=== PATIENT | male | born 1960 | race Caucasian/White ===

== ENCOUNTER 2017-03-05 08:06 | Day surgery (SDC) | payer BC ==
[~2017-03-05] VITALS: Ht 180.3 cm; Wt 99.8 kg
[~2017-03-05 08:06] MED LIST: LIDOCAINE 1% (10mg/ml) 2ml SDV INJ ONE; LR 1,000 ML IV SCH
--- OUTSIDE RECORDS SUMMARY | 2017-03-05 08:10 | XMS REPORT | Referral Summary ---
Author Author [facility], [facility] Organization [facility] Address Unknown Phone Unavailable Care Team Providers [employer] Journalist Name Role Phone No PCP, States Primary Care Physician [phone] Encounter VC Date(s): 09/30/16 - 09/30/16 [facility] [place], [address] [place] [address] Discharge Diagnosis: Acute frontal sinusitis Discharge Diagnosis: Conjunctivitis, right eye Discharge Disposition: 01-Home or Self Care Attending Physician: Edwin Quiroz MD Admitting Physician: Edwin Quiroz MD Vital Signs Most recent to 1 oldest [Reference Range]: Temperature Tympanic 36.9 degC [36.6-38.1 degC] (09/30/16 8:52 AM) Peripheral Pulse 85 bpm Rate [60-100 bpm] (09/30/16 8:52 AM) Blood Pressure 118/78 mmHg [90-140/60-90 mmHg] (09/30/16 8:52 AM) SpO2 97 % (09/30/16 8:52 AM) Problem List Condition Effective Dates Status Health Status Informant Anemia, Active unspecified(Confirme d) Cardiac dysrhythmia, Active unspecified(Confirme d) Osteoarthrosis, Active unspecified site(Confirmed) Obesity(Confirmed) Active patient Varicella w/o Active complication(Confirm ed) Allergies, Adverse Reactions, Alerts No Known Medication Allergies Medications Bactrim DS 800 mg-160 mg oral tablet 1 tabs, Oral, BID, X 10 days, # 20 tabs, 0 Refill(s), [id number] Start Date: 09/30/16 Stop Date: 10/10/16 Status: Ordered Chantix Oral, BID, 0 Refill(s) Start Date: 09/30/16 Status: Ordered sulfacetamide sodium 10% ophthalmic solution 1 drops, Eye-Both, QID, X 10 days, # 15 mL, 0 Refill(s), Pharmacy: [facility] #[id number] Start Date: 09/30/16 Stop Date: 10/10/16 Status: Ordered Results No data available for this section Immunizations No data available for this section Procedures Procedure Date Related Diagnosis Body Site Colonoscopy1 12/14/11 Colonoscopy2 11/30/06 Circumcision Left Knee Surgery 1Hyperplastic polyp x1, Fam HX colon cancer, Repeat 5 yrs 2Hyperplastic Polyps x2, Fam HX Colon Cancer, Repeat 5 Yrs Social History Social History Type Response Smoking Status Current some day smoker; Type: Cigarettes Assessment and Plan Extracted from: Title: Office Visit Note Author: Edwin Quiroz MD Date: 09/30/16 Assessment/Plan 1.Acute frontal sinusitis 2.Conjunctivitis, right eye It's unclear whether this is viral or bacterial, but since it is quite localized and has been getting a bit worse, we'll cover with antibiotic treatment. Option given for sulfa medication and also sulfacetamide drops for the eyes. Discussed expected course and contagiousness. Follow-up when necessary.
--- OUTSIDE RECORDS SUMMARY | 2017-03-05 08:10 | XMS REPORT | Continuity of Care Document ---
Author Author [facility] Organization [facility] Address Unknown Phone Unavailable Allergies Active Description Code Type Severity Reaction Onset Reported/Identified Relationship to Patient Clinical Status Yes No Known Medication Allergies NKMA N/A N/A 10/30/2014 Medications Problems Procedures Results Encounters ACCT No. Visit Date/Time Discharge Status Pt. Type Provider Facility Loc./Unit Complaint [id number] 09/30/2016 08:48:00 2015 23:59:00 DIS Outpatient Edwin Quiroz V [facility] New IC LT EYE RED AND SINUS ISSUES [id number] 12/02/2014 13:38:00 2014 23:59:00 DIS Outpatient Quintin Zambrano [facility] New Surg blood in stools [id number] 11/30/2014 08:50:00 2014 23:59:00 DIS Outpatient Chichi Huynh F [facility] New FM 1 mo recheck - abdominal pain [id number] 11/02/2014 09:11:00 2014 23:59:00 DIS Outpatient Chichi Huynh F [facility] New FM WELL MALE EXAM [id number] 03/26/2015 08:53:00 Document Registration
--- OUTSIDE RECORDS SUMMARY | 2017-03-05 08:11 | XMS REPORT | Continuity of Care Document ---
Author Author [facility] Organization [facility] Address Unknown Phone Unavailable Support Name Relationship Address Phone LUCINA IYER DO Caregiver [address] [place] [address] Unavailable FUAD QUINTEROS DPM Caregiver [address] [place] [address] Unavailable DEBORAH TEJADA Next Of Kin [address] [place], [place] [id number] Insurance Providers Guarantor Gustavo Tejada Address [address] [place], [place] [id number] Email DENIED/NO TO [facility] Policy Number [id number] Subscriber's Name WoodridgeDeborah Sullivan Relationship 01 Spouse Group Number [id number] Advance Directives Directive Response Recorded Date/Time Resuscitation Documents on File No 10/13/16 8:05am DPOA for Healthcare Only Yes 10/13/16 8:05am Living Will Yes 10/13/16 8:05am Problems No problem information available. Medications Current Home Medications Medication Dose Units Route Directions Days Qty Instructions Start Date Varenicline Tartrate (Chantix) 1 Each Tab.ds.pk 1 Tab Oral Twice A Day 53 10/12/16 Social History Social History Problem Response Recorded Date/Time Onset Date Status Reason for Hospitalization LEFT BUNIONECTOMY AND SECOND HAMMERTOE REPAIR 9:49am Not Applicable Not Applicable Chewing Tobacco Status No 04/25/2013 11:53am Not Applicable Not Applicable Hx Substance Use No 2016 10:06am Not Applicable Not Applicable Hx Alcohol Use Y DAILY 2016 10:06am Not Applicable Not Applicable Has the pt used tobacco in the last 12 months No 2016 10:06am Not Applicable Not Applicable Query Response Start Date Stop Date Smoking Status Current every day smoker Hospital Discharge Instructions Instructions: Care Instructions: I was in the hospital because (patient own words): "relieve my pain on my left foot" Discharge Diet: Regular Discharge Activity: Non-Weight Bearing See Surgery Packet Follow Up Appointments: 10/24/16 @ 0830 Pending Lab / Results: No Pending Lab Expected Signs/Symptoms: Numbness for 2 hours Notify Physician If: Excessive pain Bleeding through dressing During Business Hours:: Please call the physician's office at [phone] After Business Hours:: Please call Dr. Quinteros at [phone] Pain Management/Treatment: Pain medicine as directed Wound/Incision Care: Do not touch dressing or get it wet. Durable Medical Equipment: See Surgery packet Condition at time of discharge: Good Plan of Care Discharge Date 10/13/16 10:32am Instructions/Education Provided [facility] RENEA Quinteros Discharge Instructions Prescriptions See Medication Section Functional Status Query Response Date Recorded Ability to complete ADL's impeded by No change October 13, 2016 8:05am Allergies, Adverse Reactions, Alerts Allergen Type Severity Reaction Status Last Updated NKDA Allergy Unknown Active 10/13/16 Immunizations Query Response on File Recorded Date/Time Hx Influenza Vaccination No 10/12/16 10:06am Hx Pneumococcal Vaccination No 10/12/16 10:06am Hx Influenza Vaccination No 10/12/16 10:06am Vital Signs Acute Vital Signs Vital Response Date/Time Temperature (Fahrenheit) 97.8 deg F (96.8 - 99.1) 10/13/2016 10:06am Temperature (Calculated Celsius) 36.55788 degrees C (36.0 - 37.3) 10/13/2016 10:06am Temperature Source Temporal 10/13/2016 10:06am Pulse Rate (adult) 67 bpm (60 - 100) 10/13/2016 10:06am Respiratory Rate 19 breaths/min (10 - 20) 10/13/2016 10:06am O2 Sat by Pulse Oximetry 98 % (90 - 100) 10/13/2016 10:06am Oxygen Delivery Method Room Air 10/13/2016 10:06am Oxygen Flow Rate 6.00 L/min 10/13/2016 9:42am Blood Pressure 103/65 mm Hg 10/13/2016 10:06am Blood Pressure Source Automatic Cuff 10/13/2016 10:06am Height (Feet) 6 feet 10/13/2016 7:58am Height (Inches) 0.00 inches 10/13/2016 7:58am Weight (Kilograms) 95.200 kg 10/13/2016 7:58am Body Mass Index (BMI) 28.5 10/13/2016 7:58am Results Name: GUSTAVO TEJADA Unit #: [id number] : 1960 Sex: M Admit Date: Loc / Svc: NSC Discharge Date: DIAGNOSTIC IMAGING REPORT Report #: [id number] [facility] BLANCHE Siddiqi Indication: ITS.REASON: POST SURGERY Procedure: FOOT LEFT 2 VIEWS: Encounter: Initial Comparison: None Technique: AP and lateral views of the left foot were obtained Findings: Bony mineralization is normal. Postoperative changes of the distal first metatarsal and first proximal phalanx with metallic hardware in place. Osteotomy of the distal aspect of the second proximal phalanx. The visualized osseous structures appear otherwise intact with no acute fracture identified. The joint spaces are maintained. No focal radiographically apparent soft tissue swelling. No radiopaque foreign body. Impression: 1. Postsurgical changes of the distal first metatarsal and first proximal phalanx with metallic hardware in place which appears intact. 2. Osteotomy of the distal aspect of the second proximal phalanx. . Procedures Procedure Status Date Provider(s) Bunionectomy Completed 10/13/16 FUAD QUINTEROS DPM Encounters Encounter Location Arrival/Admit Date Discharge/Depart Date Attending Provider Departed [facility] Day [facility] 10/13/16 7:38am 10/13/16 10 :32am FUAD QUINTEROS DPM
[2017-03-05 08:45] VITALS: Ht 180.3 cm; Wt 99.8 kg
[2017-03-05 08:46] VITALS: BP 145/83; PULSE 43; RESP 14; TEMP 97.8; O2SAT 98
[2017-03-05 08:57] VITALS: PULSE 47
--- NOTE | 2017-03-05 09:05 | ANESPREOP ---
Anesthesia Record Date and Time DATE: 03/05/17 TIME: 09:04 Pre-Op Diagnosis [place] Proposed Surgical Procedure colonoscopy NPO since: Midnight Allergies: Coded Allergies: NKDA (Verified Allergy, Unknown, 03/05/17) Ht/Wt/BMI Height: 5 ' 11.00 " Weight: 99.800 kg BMI: 30.7 kg/m2 Vital Signs Date Time Temp Pulse Resp B/P Pulse Ox O2 Delivery O2 Flow Rate FiO2 03/05/17 08:57 47 03/05/17 08:46 97.8 14 145/83 98 Room Air Medications Inpatient Medications Current Medications Medications (Trade) Dose Ordered Sig/Haile Start Time Stop Time Status Last Admin Dose Admin Lactated Ringer's (Lactated Ringers) 1,000 ml @ 30 mls/hr Q24H 03/05/17 07:00 No Active Prescriptions or Reported Meds Currently on Beta Rebecca: No Medical/Surgical History Anesthesia PMH: Reports: Anesthesia Reactions (has "been known to be resistive " AFTER COLONOSCOPY), Arthritis (KNEES), Reflux, Denies: *Angina, *Diabetes, * Dyspnea, *Hypertension, *HI, Asthma, Blood Transfusion Reac, CHF, COPD, CVA/ Stroke/TIA, Cancer, Clotting Problems, Deep Vein Thrombosis, Glaucoma, Headaches , Hepatitis, Hiatal Hernia, Malignant Hyperthermia, Pneumonia, Renal Disease, Rheumatic Fever, Seizures, Sleep Apnea, Thyroid Disease, Tuberculosis Smoking Status: Former smoker (quit 7 years ago) # of Packs per Day: .5 # of Years: 30 Use Chewing Tobacco?: No Second Hand Exposure: No Substance Use Type: does not use Alcohol Intake: rarely Past Surgical History Orthopedic Surgeries: Yes - ALEX. KNEE SCOPE Abdominal Surgeries: No Genitourinary Surgeries: Yes - urethra ballooning Cardiac Surgeries: No Endocrine Surgeries: No Reproductive Surgeries: Yes - CIRCUMCISION PER H&P Neurological Surgeries: No Ear Surgeries: No Nose Surgeries: No Throat Surgeries: Yes - tonsils Other Surgeries: No - COLONOSCOPY X 2 Anesthesia Adverse Reactions: FOUND none Pertinent Findings EKG Rhythm: Sinus Bradycardia Physical Exam Respiratory: Lungs clear Cardiovascular: FOUND Regular rate, rhythm Airway Assessment Mallampati Score: II TMD: 3 Fingerbreadths Neck Extension: Good Overall Assessment: No Airway Concerns ASA: 2 Plan Anesthesia Plan: TIVA Discussion Discussed risks/options/alternatives of anesthesia and questions answered. Patient consents. Nursing pain assessment noted. Attestation Statement Prior to the delivery of any anesthetic medication, I examined the patient, developed the plan, obtained the patient's consent and discussed the risk and benefits of the procedure with the patient/guardian. NABIL ZIMMERMAN ROOM SERVICE SERVER March 05, 2017 09:05
[2017-03-05] MEDS ORDERED: PROPOFOL 500mg 50 ML IV ONE (09:49)
[2017-03-05] MEDS ORDERED: LIDOCAINE 1% (10mg/ml) 2ml SDV ONE (09:49)
[2017-03-05] MEDS ORDERED: GLYCOPYRROLATE 0.4mg/2ml INJECTION ONE (09:49)
[2017-03-05 10:11] VITALS: BP 137/87; PULSE 72; RESP 14; TEMP 98; O2SAT 97
[2017-03-05 10:31] VITALS: BP 121/78; PULSE 68; RESP 16; O2SAT 98
--- NOTE | 2017-03-05 10:38 | ANESPO ---
Post-Op Note Date 03/05/17 Time: 10:38 Status Pt Participated in Evaluation: Pt participated in person Vital Signs Date Time Temp Pulse Resp B/P Pulse Ox O2 Delivery O2 Flow Rate FiO2 03/05/17 10:31 68 16 121/78 98 Room Air 03/05/17 10:11 98.0 Respiratory Function: Airway patent Cardiovascular Function: Regular pulse Mental Status: Alert/oriented Pain Level Intensity: 0 Unable to Assess Pain Due To: Medicated/Sleeping Hydration: Taking po fluids, IV infusing Complications during Recovery None apparent Post-Anesthesia Notes pt. don. well Follow-Up Instructions Instructions Per Surgeon Additional Information none KOLTON CRESPO CRNA March 05, 2017 10:38
[2017-03-05 10:46] VITALS: BP 150/96; PULSE 60; RESP 16; O2SAT 99
[2017-03-05 10:53] VITALS: BP 157/97; PULSE 60; RESP 16; O2SAT 100
--- NOTE | 2017-03-05 11:03 | NUR ---
STATUS MARGARET CRESPO NOTIFIED OF PATIENT ELEVATED BLOOD PRESSURE. NO ORDERS RECEIVED AT THIS TIME. RN INSTRUCTED TO SEND PATIENT HOME AT THIS TIME IF ASYMPTOMATIC
--- NOTE | 2017-03-05 17:45 | OPNOTEF ---
DATE OF SERVICE 03/05/2017 SURGEON Quintin Catalan MD PREOPERATIVE DIAGNOSIS Family history of colon cancer within a first-degree relative. POSTOPERATIVE DIAGNOSIS Family history of colon cancer within a first-degree relative, moderate sigmoid diverticulosis. PROCEDURE Colonoscopy. ANESTHESIA TIVA BRIEF HISTORY/INDICATIONS Mr. Garcia is 56-year-old gentleman who has a family history for colon cancer within his father. Patient presents today to undergo colonoscopy. For completeness please refer to notes included in the patient's chart. FINDINGS Upon colonoscopy there was no evidence for angiodysplastic lesions, polyps or alice malignancies. The patient was found to have a moderate number of diverticula within the sigmoid colon region. NARRATIVE OF PROCEDURE After informed consent was obtained, the patient was brought to the endoscopy suite and placed on the table in the left lateral decubitus position. The patient subsequently underwent total intravenous anesthesia by the nurse laborer pipelines per my request. A formal timeout was then completed. Next, a digital rectal examination was performed. Normal sphincter tone. No rectal masses were appreciated. An Olympus colonoscope was inserted in the anus and advanced with the lumen of the colon under direct visualization at all times until the cecum was ascertained. Triangulation of the tenia coli, ileocecal valve and appendiceal lumen were all visualized. The scope was then slowly withdrawn, again maintaining visualization of the lumen at all times. As stated above, the entire colon was without evidence for angiodysplastic lesions, polyps or alice malignancies. The patient was found to have a moderate number of diverticula within the sigmoid colon region. The scope continued to be withdrawn until it was brought forth back into the rectal vault. A J-maneuver was then performed. No worrisome perianal pathology was noted. The scope was allowed to straighten and was withdrawn through the anal verge. The patient tolerated the procedure without difficulty and was sent back to the preoperative area in stable condition. Secondary to the absence of findings upon this colonoscopy I believe the patient should undergo a repeat colonoscopy at a five-year interval given his family history of colon cancer within a first-degree relative. ORTEGA
== END 2017-03-05 11:07 | disposition home or self-care (01) ==
LOC: SCU 08:06
PROVIDERS: ATTEND Surgery
DX: Z12.11 Encounter for screening for malignant neoplasm of colon (principal); K57.30 Diverticulosis of large intestine without perforation or abscess without bleeding; Z86.010 Personal history of colon polyps; Z80.0 Family history of malignant neoplasm of digestive organs
CPT/HCPCS: 45378; J2704; J7120